=== PATIENT | female | born 1950 | race Caucasian/White ===

== ENCOUNTER → 2023-05-01 11:08 | Outpatient (REF) | payer MEDICARE, OTHER, SELFPAY | LOC: HWEVLT 11:08 | PROVIDERS: ATTENDING PHYSICIAN Radiology Vascular & Interventional Radiology | DX: I83.893 Varicose veins of bilateral lower extremities with other complications (principal) | CPT/HCPCS: 93970 ==

== ENCOUNTER 2023-05-14 14:00 | Outpatient (RCR) | payer MEDICARE, OTHER, SELFPAY | END 2023-05-14 23:59 | disposition home or self-care (01) | LOC: RPT 14:00 | PROVIDERS: ATTENDING PHYSICIAN Internal Medicine Cardiovascular Disease; FAMILY PHYSICIAN Internal Medicine Geriatric Medicine | DX: I89.0 Lymphedema, not elsewhere classified (principal); Z73.6 Limitation of activities due to disability | CPT/HCPCS: 97162; 97535; 97760; 97763 ==

== ENCOUNTER → 2023-05-15 09:11 | Outpatient (REF) | payer MEDICARE, OTHER, SELFPAY ==
[2023-05-19 13:21] LABS: Albumin 4.34 g/dL (3.75-5.01); Alpha 2 Globulin 0.73 g/dL (0.48-1.05); SPEP IFE Reflex IFE Done; Total Protein-Electrophoresis 6.6 g/dL (6.3-8.2)
[2023-05-20 07:25] LABS: IgA 105 mg/dL (68-408); IgG 426 mg/dL (768-1632); IgM 45 mg/dL (35-263)
== END ==
LOC: REG 09:11
PROVIDERS: ATTENDING PHYSICIAN Internal Medicine Geriatric Medicine
DX: G35 Multiple sclerosis (principal); Z85.038 Personal history of other malignant neoplasm of large intestine; R06.02 Shortness of breath; I10 Essential (primary) hypertension; I89.0 Lymphedema, not elsewhere classified; I36.1 Nonrheumatic tricuspid (valve) insufficiency; M17.11 Unilateral primary osteoarthritis, right knee; M79.89 Other specified soft tissue disorders; I87.2 Venous insufficiency (chronic) (peripheral); G56.03 Carpal tunnel syndrome, bilateral upper limbs
CPT/HCPCS: 36415; 82784; 84155; 84165; 86334

== ENCOUNTER 2023-06-17 14:22 | Outpatient (RCR) | payer MEDICARE, OTHER, SELFPAY | END 2023-06-19 11:03 | disposition home or self-care (01) | LOC: RPT 14:22 | PROVIDERS: ATTENDING PHYSICIAN Internal Medicine Cardiovascular Disease; FAMILY PHYSICIAN Internal Medicine Geriatric Medicine | DX: I89.0 Lymphedema, not elsewhere classified (principal); Z73.6 Limitation of activities due to disability; R26.2 Difficulty in walking, not elsewhere classified | CPT/HCPCS: 97535 ==

== ENCOUNTER → 2023-06-19 07:57 | Outpatient (REF) | payer MEDICARE, OTHER, SELFPAY ==
[2023-06-19 08:24] LABS: % Basophils 0.9 % (0-2); % Eosinophils 2.6 % (0-6); % Immature Granulocytes 0.3 % (0-0.5); % Lymphocytes 27.7 % (20.5-51.1); % Monocytes 10.7 % (1.7-9.3); % Neutrophils 57.8 % (42.2-75.2); Absolute Basophils 0.1 10^3/uL (0-0.2); Absolute Eosinophils 0.2 10^3/uL (0-0.7); Absolute Lymphocytes 1.6 10^3/uL (1.2-3.4); Absolute Monocytes 0.6 10^3/uL (0.1-0.6); Absolute Neutrophils 3.4 10^3/uL (1.4-6.5); Hematocrit 40.9 % (37.0-47.0); Hemoglobin 13.6 g/dL (12.0-16.0); Mean Corp Hgb Conc. 33.3 g/dL (33.0-37.0); Mean Corpuscular Hgb 30.1 pg (27.0-31.0); Mean Corpuscular Volume 90.5 fL (81.0-99.0); Mean Platelet Volume 10.4 fL (7.4-10.4); Nucleated Red Blood Cells % 0 %; Platelet Count 251 10^3/uL (130-400); Red Blood Cell Count 4.52 10^6/uL (4.20-5.40); Red Cell Dist. Width 12.8 % (11.5-14.5); White Blood Cell Count 5.8 10^3/uL (4.8-10.8)
[2023-06-19 09:11] LABS: ALT (SGPT) 25 U/L (0-35); AST (SGOT) 29 U/L (14-36); Alkaline Phosphatase 79 U/L (38-126); Blood Urea Nitrogen 27 mg/dl (7-17); Calcium 9.5 mg/dl (8.4-10.2); Carbon Dioxide 25 mmol/L (22-30); Chloride 105 mmol/L (98-107); Glucose 103 mg/dl (70-99); Potassium 4.1 mmol/L (3.5-5.1); Sodium 136 mmol/L (135-145); Total Bilirubin 0.6 mg/dl (0.2-1.3); Total Protein 6.2 g/dl (6.3-8.2); eGFR > 60.00
== END ==
LOC: REG 07:57
PROVIDERS: ATTENDING PHYSICIAN Specialist; FAMILY PHYSICIAN Internal Medicine Geriatric Medicine
DX: G35 Multiple sclerosis (principal)
CPT/HCPCS: 36415; 80053; 85025

== ENCOUNTER → 2023-07-20 08:01 | Outpatient (REF) | payer MEDICARE, OTHER, SELFPAY | LOC: MRI 3T 08:01 | PROVIDERS: ATTENDING PHYSICIAN Specialist; FAMILY PHYSICIAN Internal Medicine Geriatric Medicine | DX: G35 Multiple sclerosis (principal) | CPT/HCPCS: 70551; 72141 ==

== ENCOUNTER → 2023-07-24 14:51 | Outpatient (REF) | payer MEDICARE, OTHER, SELFPAY | LOC: MRI 3T 14:51 | PROVIDERS: ATTENDING PHYSICIAN Specialist; FAMILY PHYSICIAN Internal Medicine Geriatric Medicine | DX: G35 Multiple sclerosis (principal) | CPT/HCPCS: 72157; A9575 ==

== ENCOUNTER → 2023-08-27 10:48 | Outpatient (REF) | payer MEDICARE, OTHER, SELFPAY ==
[2023-08-27 12:34] LABS: Hepatitis B Surface Antigen Negative (Negative)
[2023-08-27 12:51] LABS: Hepatitis C Antibody Negative (Negative)
[2023-08-27 12:58] LABS: HIV Combo Negative (Negative)
== END ==
LOC: REG 10:48
PROVIDERS: ATTENDING PHYSICIAN Obstetrics & Gynecology Gynecology; FAMILY PHYSICIAN Internal Medicine Geriatric Medicine
DX: Z20.2 Contact with and (suspected) exposure to infections with a predominantly sexual mode of transmission (principal)
CPT/HCPCS: 36415; 86780; 86803; 87340; 87389

== ENCOUNTER → 2023-09-04 07:55 | Outpatient (REF) | payer MEDICARE, OTHER, SELFPAY | LOC: HWEVLT 07:55 | PROVIDERS: ATTENDING PHYSICIAN Radiology Vascular & Interventional Radiology | DX: I83.892 Varicose veins of left lower extremity with other complications (principal) | CPT/HCPCS: 36478 ==

== ENCOUNTER → 2023-09-25 07:58 | Outpatient (REF) | payer MEDICARE, OTHER, SELFPAY | LOC: HWEVLT 07:58 | PROVIDERS: ATTENDING PHYSICIAN Radiology Diagnostic Radiology | DX: I83.893 Varicose veins of bilateral lower extremities with other complications (principal) | CPT/HCPCS: 36478; 93971; C1769 ==

== ENCOUNTER → 2023-10-09 14:42 | Outpatient (REF) | payer MEDICARE, OTHER, SELFPAY | LOC: HWEVLT 14:42 | PROVIDERS: ATTENDING PHYSICIAN Radiology Vascular & Interventional Radiology | DX: I83.891 Varicose veins of right lower extremity with other complications (principal) | CPT/HCPCS: 93971 ==

== ENCOUNTER → 2023-10-10 13:45 | Outpatient (REF) | payer MEDICARE, OTHER, SELFPAY | LOC: REG 13:45 | PROVIDERS: ATTENDING PHYSICIAN Nurse Practitioner Family; FAMILY PHYSICIAN Internal Medicine Geriatric Medicine | DX: S40.862A Insect bite (nonvenomous) of left upper arm, initial encounter (principal); W57.XXXA Bitten or stung by nonvenomous insect and other nonvenomous arthropods, initial encounter | CPT/HCPCS: 36415; 86618 ==

== ENCOUNTER → 2023-12-14 07:33 | Outpatient (REF) | payer MEDICARE, OTHER, SELFPAY ==
[2023-12-14 08:34] LABS: % Basophils 0.8 % (0-2); % Eosinophils 2.4 % (0-6); % Immature Granulocytes 0.2 % (0-0.5); % Lymphocytes 26.5 % (20.5-51.1); % Monocytes 10.6 % (1.7-9.3); % Neutrophils 59.5 % (42.2-75.2); Absolute Eosinophils 0.1 10^3/uL (0-0.7); Absolute Lymphocytes 1.4 10^3/uL (1.2-3.4); Absolute Monocytes 0.5 10^3/uL (0.1-0.6); Hematocrit 41.1 % (37.0-47.0); Hemoglobin 13.8 g/dL (12.0-16.0); Mean Corp Hgb Conc. 33.6 g/dL (33.0-37.0); Mean Corpuscular Hgb 30.1 pg (27.0-31.0); Mean Corpuscular Volume 89.7 fL (81.0-99.0); Mean Platelet Volume 10.4 fL (7.4-10.4); Nucleated Red Blood Cells % 0 %; Platelet Count 268 10^3/uL (130-400); Red Blood Cell Count 4.58 10^6/uL (4.20-5.40); Urine Albumin Negative (Neg - Trace); Urine Bilirubin Negative (Negative); Urine Character Clear (Clear); Urine Color Yellow; Urine Glucose Negative (Negative); Urine Ketone Negative (Negative); Urine Leukocyte Negative (Negative); Urine Nitrite Negative (Negative); Urine Occult Blood Negative (Negative); Urine Urobilinogen Negative (Neg - 1+); White Blood Cell Count 5.1 10^3/uL (4.8-10.8)
[2023-12-14 09:13] LABS: ALT (SGPT) 32 U/L (0-35); AST (SGOT) 31 U/L (14-36); HDL Cholesterol 59 mg/dl; LDL Cholesterol, Calculated 163 mg/dl; Total Cholesterol 243 mg/dl (50-199); Triglyceride 106 mg/dl (10-149); Very Low Density Lipoprotein 21 mg/dl (0-30)
[2023-12-14 09:30] LABS: Vitamin D, 25-OH*** 43.9 ng/mL (30-80)
== END ==
LOC: REG 07:33
PROVIDERS: ATTENDING PHYSICIAN Internal Medicine Cardiovascular Disease; REFERRING PHYSICIAN Internal Medicine Geriatric Medicine
DX: G35 Multiple sclerosis (principal); R06.02 Shortness of breath; I10 Essential (primary) hypertension; I89.0 Lymphedema, not elsewhere classified; I36.1 Nonrheumatic tricuspid (valve) insufficiency; M17.11 Unilateral primary osteoarthritis, right knee; M79.89 Other specified soft tissue disorders; I87.2 Venous insufficiency (chronic) (peripheral); G56.03 Carpal tunnel syndrome, bilateral upper limbs; Z13.89 Encounter for screening for other disorder; M72.2 Plantar fascial fibromatosis; R61 Generalized hyperhidrosis; Z01.89 Encounter for other specified special examinations
CPT/HCPCS: 36415; 80061; 81003; 82306; 84450; 84460; 85025

== ENCOUNTER → 2024-01-15 07:02 | Outpatient (REF) | payer MEDICARE, OTHER, SELFPAY | LOC: WDC 07:02 | PROVIDERS: ATTENDING PHYSICIAN Obstetrics & Gynecology Gynecology; FAMILY PHYSICIAN Internal Medicine Geriatric Medicine | DX: Z12.31 Encounter for screening mammogram for malignant neoplasm of breast (principal) | CPT/HCPCS: 77063; 77067 ==

== ENCOUNTER → 2024-02-14 12:33 | Outpatient (REF) | payer MEDICARE, OTHER, SELFPAY | LOC: EMG 12:33 | PROVIDERS: ATTENDING PHYSICIAN Orthopaedic Surgery Hand Surgery; FAMILY PHYSICIAN Internal Medicine Geriatric Medicine | DX: G56.03 Carpal tunnel syndrome, bilateral upper limbs (principal) | CPT/HCPCS: 95886; 95911 ==

== ENCOUNTER → 2024-03-16 11:59 | Outpatient (REF) | payer MEDICARE, OTHER, SELFPAY ==
[2024-03-16 12:36] LABS: % Basophils 0.6 % (0-2); % Eosinophils 1.5 % (0-6); % Immature Granulocytes 0.4 % (0-0.5); % Lymphocytes 33.5 % (20.5-51.1); % Monocytes 10.8 % (1.7-9.3); % Neutrophils 53.2 % (42.2-75.2); Absolute Eosinophils 0.1 10^3/uL (0-0.7); Absolute Lymphocytes 1.8 10^3/uL (1.2-3.4); Absolute Monocytes 0.6 10^3/uL (0.1-0.6); Absolute Neutrophils 2.9 10^3/uL (1.4-6.5); Hematocrit 44.1 % (37.0-47.0); Hemoglobin 14.6 g/dL (12.0-16.0); Mean Corp Hgb Conc. 33.1 g/dL (33.0-37.0); Mean Corpuscular Hgb 29.7 pg (27.0-31.0); Mean Corpuscular Volume 89.6 fL (81.0-99.0); Mean Platelet Volume 11.7 fL (7.4-10.4); Nucleated Red Blood Cells % 0 %; Platelet Count 232 10^3/uL (130-400); Red Blood Cell Count 4.92 10^6/uL (4.20-5.40); Red Cell Dist. Width 13.6 % (11.5-14.5); Urine Albumin Negative (Neg - Trace); Urine Bilirubin Negative (Negative); Urine Character Clear (Clear); Urine Color Yellow; Urine Glucose Negative (Negative); Urine Ketone Negative (Negative); Urine Leukocyte Negative (Negative); Urine Nitrite Negative (Negative); Urine Occult Blood Negative (Negative); Urine Specific Gravity 1.015 (<1.030); Urine Urobilinogen Negative (Neg - 1+); White Blood Cell Count 5.4 10^3/uL (4.8-10.8)
[2024-03-16 12:50] LABS: Blood Urea Nitrogen 14 mg/dl (7-17); Calcium 9.8 mg/dl (8.4-10.2); Carbon Dioxide 30 mmol/L (22-30); Chloride 99 mmol/L (98-107); Glucose 91 mg/dl (70-99); Sodium 138 mmol/L (135-145); eGFR > 60.00
== END ==
LOC: REG 11:59
PROVIDERS: ATTENDING PHYSICIAN Family Medicine; FAMILY PHYSICIAN Internal Medicine Geriatric Medicine
DX: Z01.818 Encounter for other preprocedural examination (principal)
CPT/HCPCS: 36415; 80048; 81003; 85025; 93005

== ENCOUNTER → 2024-05-05 07:44 | Outpatient (REF) | payer MEDICARE, OTHER, SELFPAY ==
[2024-05-05 09:23] LABS: ALT (SGPT) 25 U/L (0-35); AST (SGOT) 28 U/L (14-36); Albumin 4.4 g/dl (3.5-5.0); Alkaline Phosphatase 84 U/L (38-126); Blood Urea Nitrogen 10 mg/dl (7-17); Calcium 9.8 mg/dl (8.4-10.2); Carbon Dioxide 26 mmol/L (22-30); Chloride 103 mmol/L (98-107); Glucose 75 mg/dl (70-99); HDL Cholesterol 55 mg/dl; LDL Cholesterol, Calculated 90 mg/dl; Potassium 4.2 mmol/L (3.5-5.1); Sodium 139 mmol/L (135-145); Total Bilirubin 0.7 mg/dl (0.2-1.3); Total Cholesterol 163 mg/dl (50-199); Total Protein 6.3 g/dl (6.3-8.2); Triglyceride 93 mg/dl (10-149); Very Low Density Lipoprotein 18 mg/dl (0-30); eGFR > 60.00
== END ==
LOC: REG 07:44
PROVIDERS: ATTENDING PHYSICIAN Internal Medicine Geriatric Medicine
DX: G35 Multiple sclerosis (principal); R06.02 Shortness of breath; I10 Essential (primary) hypertension; I89.0 Lymphedema, not elsewhere classified; E78.2 Mixed hyperlipidemia; I36.1 Nonrheumatic tricuspid (valve) insufficiency; M17.11 Unilateral primary osteoarthritis, right knee; M79.89 Other specified soft tissue disorders; I87.2 Venous insufficiency (chronic) (peripheral); G56.03 Carpal tunnel syndrome, bilateral upper limbs; Z13.89 Encounter for screening for other disorder; M72.2 Plantar fascial fibromatosis
CPT/HCPCS: 36415; 80053; 80061

== ENCOUNTER → 2024-06-04 12:59 | Outpatient (REF) | payer MEDICARE, OTHER, SELFPAY | LOC: RAD 12:59 | PROVIDERS: ATTENDING PHYSICIAN Internal Medicine Geriatric Medicine | DX: R22.42 Localized swelling, mass and lump, left lower limb (principal); R22.41 Localized swelling, mass and lump, right lower limb | CPT/HCPCS: 76882 ==

== ENCOUNTER → 2024-09-19 08:07 | Outpatient (REF) | payer MEDICARE, OTHER, SELFPAY ==
[2024-09-19 11:14] LABS: Hematocrit 42.8 % (37.0-47.0); Hemoglobin 13.9 g/dL (12.0-16.0); Mean Corp Hgb Conc. 32.5 g/dL (33.0-37.0); Mean Corpuscular Volume 94.1 fL (81.0-99.0); Nucleated Red Blood Cells % 0 %; Platelet Count 237 10^3/uL (130-400); Red Cell Dist. Width 12.7 % (11.5-14.5)
[2024-09-19 12:32] LABS: ALT (SGPT) 31 U/L (0-35); AST (SGOT) 28 U/L (14-36); Albumin 4.4 g/dl (3.5-5.0); Alkaline Phosphatase 80 U/L (38-126); Blood Urea Nitrogen 21 mg/dl (7-17); Calcium 9.6 mg/dl (8.4-10.2); Carbon Dioxide 29 mmol/L (22-30); Chloride 106 mmol/L (98-107); Glucose 82 mg/dl (70-99); Potassium 4.6 mmol/L (3.5-5.1); Sodium 142 mmol/L (135-145); Total Protein 6.5 g/dl (6.3-8.2); eGFR > 60.00
== END ==
LOC: REG 08:07
PROVIDERS: ATTENDING PHYSICIAN Specialist; FAMILY PHYSICIAN Internal Medicine Geriatric Medicine
DX: G35 Multiple sclerosis (principal)
CPT/HCPCS: 36415; 80053; 85025

== ENCOUNTER → 2024-11-30 06:33 | Outpatient (REF) | payer MEDICARE, OTHER, SELFPAY | LOC: MRI 3T 06:33 | PROVIDERS: ATTENDING PHYSICIAN Specialist; FAMILY PHYSICIAN Internal Medicine Geriatric Medicine | DX: G35.D Multiple sclerosis, unspecified (principal) | CPT/HCPCS: 70551; 72146 ==

== ENCOUNTER → 2025-01-16 08:34 | Outpatient (REF) | payer MEDICARE, OTHER, SELFPAY | LOC: WDC 08:34 | PROVIDERS: ATTENDING PHYSICIAN Internal Medicine Geriatric Medicine | DX: Z12.31 Encounter for screening mammogram for malignant neoplasm of breast (principal) | CPT/HCPCS: 77063; 77067 ==

== ENCOUNTER 2025-02-02 11:02 | Emergency (ER) | payer MEDICARE, OTHER, SELFPAY ==
[2025-02-02 11:06] VITALS: BP 138/66; BMI 29.2
--- NOTE | 2025-02-02 11:20 | ED.GENMED ---
History of Present Illness
General
Chief Complaint: Fainting/Passed Out
Source: patient
Exam Limitations: none
Time Seen by Provider: 02/02/25 11:18
History of Present Illness
History of Present Illness:
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 She was standing talking to a staff member and passed out. She remembers waking up on the floor. She struck the back of her head. She also complains of left hip pain.
There is no preceding chest pain or shortness of breath. She does feel she has lightheadedness. She has a history of MS. She notes numbness to both lips that she does not typically have. She denies any unilateral numbness or weakness otherwise.
No fevers. She had breakfast this morning. No other complaints
Past History
Past History
ED Past Medical History: Other
ED Past Surgical History: Bowel resection and Orthopedic
Social History
Tobacco: Former smoker
Alcohol: Occasional
Personal: Single
Living: with family
Family History
Family History: Unable to obtain
Phy Exam
Physical Exam
Physical Exam:
General: Well-appearing female no acute respiratory distress
HEENT: Normal cephalic atraumatic small hematoma noted posterior scalp pupils equal round reactive to light face symmetric
Heart: Regular rate and rhythm
Lungs: Clear no wheeze
Musculoskeletal exam: The spine is mildly tender about the paraspinous area cervical spine. Left hip is tender anteriorly.
Neurologic exam: Normal gait alert and oriented x 3 no unilateral deficit finger-nose [id number] intact no drift no facial asymmetry
Course
Orders/Labs/Results
Orders:
Orders
02/02/25
CT Cervical Spine W/o Iv Contr Urgent
Reason For Exam: fall
02/02/25 11:12
CMP [Comprehensive Metabolic Panel] Urgent
Complete Blood Count/With Diff Urgent
02/02/25 11:19
Electrocardiogram (*1) Urgent
Reason for Study: Syncope
CT Head W/o Iv Contrast Urgent
Comment:
Reason For Exam: fall
EKG- Treatment ONCE
02/02/25 11:22
CR Hip - LT w/wo Pel 2-3 Vw* Urgent
Comment:
Reason For Exam: fall
Include a pelvis x-ray?: Yes
Abnormal Lab Results
02/02/25
11:12
Carbon Dioxide 31 H mmol/L
(22-30)
BUN 28 H mg/dl
(7-17)
Glucose 133 H mg/dl
(70-99)
Total Protein 6.2 L g/dl
(6.3-8.2)
02/02/25 11:12
02/02/25 11:12
Vital Signs
Initial and Last Documented VS:
Initial Vital Signs
Temp Pulse Resp BP Pulse Ox
98.4 F 74 22 138/66 95
02/02/25 11:06 02/02/25 11:06 02/02/25 11:06 02/02/25 11:06 02/02/25 11:06
Last Documented Vital Signs
Temp Pulse Resp BP Pulse Ox
98.4 F 70 17 158/82 97
02/02/25 11:06 02/02/25 15:14 02/02/25 13:30 02/02/25 15:14 02/02/25 13:30
MDM/Problems Addressed
Differential Diagnosis Includes:
Syncopal episode with fall. Question orthostatic hypotension versus arrhythmia versus vasovagal episode or anemia. Will check labs EKG and placed on monitoring tech. She did have a head strike. CT of the head and cervical spine ordered. X-ray
left hip ordered
*Pulse Oximetry
SaO2: 95
Oxygen Mode of Delivery: Room air
Patient hypoxic: no
*Critical Care Note
Total Time (30-74mins, 75-104mins- exclusive of procedures): Not Applicable
Update Note
Update Note:
Workup here essentially unremarkable. CTs negative x-ray left hip negative no arrhythmias noted on monitor. No evidence of electrolyte abnormality or anemia. Stable for discharge with follow-up with family doctor
ED Attending Note
-
Portions of this chart may have been created with voice recognition software.� Occasional wrong word or��sound alike� substitutions may have occurred due to the inherent limitations of voice recognition software.
Discharge Plan
Departure
Patient Disposition: Home (Routine Discharge)
Date of Disposition: 02/02/25
Time of Disposition: 15:29
Patient with high blood pressure during this ER visit?: No
Discharge Problem:
Fall
Instructions: Syncope (Fainting) (DC)
Prescriptions:
No Action
multivitamin [Multi-Day] 1 EACH tablet
1 ea PO DAILY
glatiramer [Copaxone] 40 MG/ML syringe
40 mg SQ MOWEFR
omega 2-gfj-mhu-fish oil [Fish Oil] 1 EACH capsule
1 ea PO DAILY
prednisone 50 MG tablet
50 mg PO DAILY Qty: 2 0RF
epinephrine [EpiPen] 0.3 MG/0.3/SYRINGE auto-injector
0.3 mg IM .STAT PRN (Reason: throat swelling/sob) Qty: 1 0RF
albuterol sulfate [Proventil HFA] 90 MCG/PUFF HFA aerosol inhaler
2 puff inhalation Q4HPRN PRN (Reason: shortness of breath) Qty: 1 0RF
Referrals:
NONE,* [Family Provider, Internal Medicine]
Activity Restrictions/Additional Instructions:
Please return here for worsening symptoms. Stay hydrated. Follow-up with your doctor otherwise
Interventions
Interventions:
*Risk Screen - Suicide Last Done: 02/02/25 11:06
*General Assessment Last Done: 02/02/25 11:06
*Neglect/Abuse Screening Last Done: 02/02/25 11:06
*ED COVID-19 Vaccine History Last Done: 02/02/25 11:06
*ED Influenza Vaccine History Last Done: 02/02/25 11:06
[facility] Fall Risk Assessment Tool Last Done: 02/02/25 11:02
ED- Cardiac Assessment Last Done: 02/02/25 11:10
ED- Neurological Assessment Last Done: 02/02/25 11:10
Discharge Date and Time
Print Language: ROMANSH
[2025-02-02 11:23] LABS: Hematocrit 39.3 % (37.0-47.0); Hemoglobin 13.2 g/dL (12.0-16.0); Mean Corp Hgb Conc. 33.6 g/dL (33.0-37.0); Mean Corpuscular Volume 91.2 fL (81.0-99.0); Nucleated Red Blood Cells % 0 %; Platelet Count 244 10^3/uL (130-400); Red Cell Dist. Width 12.8 % (11.5-14.5)
[2025-02-02 11:46] LABS: ALT (SGPT) 31 U/L (0-35); AST (SGOT) 34 U/L (14-36); Albumin 4.1 g/dl (3.5-5.0); Alkaline Phosphatase 59 U/L (38-126); Blood Urea Nitrogen 28 mg/dl (7-17); Calcium 9.2 mg/dl (8.4-10.2); Carbon Dioxide 31 mmol/L (22-30); Chloride 103 mmol/L (98-107); Estimated Creatinine Clearance 70 ml/min; Glucose 133 mg/dl (70-99); Potassium 4.3 mmol/L (3.5-5.1); Sodium 137 mmol/L (135-145); Total Protein 6.2 g/dl (6.3-8.2); eGFR > 60.00
[2025-02-02 12:53] VITALS: BP 156/72
[2025-02-02 15:13] VITALS: BP 158/82
[2025-02-02 15:14] VITALS: BP 158/82
== END 2025-02-02 15:39 | disposition home or self-care (01) ==
LOC: EMR 11:02
PROVIDERS: Physician Assistant; EMERGENCY PHYSICIAN Emergency Medicine
DX: R55 Syncope and collapse (principal); S00.03XA Contusion of scalp, initial encounter; M25.552 Pain in left hip; W18.39XA Other fall on same level, initial encounter; Y93.89 Activity, other specified; Y92.238 Other place in hospital as the place of occurrence of the external cause; Y99.2 Volunteer activity; G35.D Multiple sclerosis, unspecified; Z87.891 Personal history of nicotine dependence
CPT/HCPCS: 99284; 70450; 72125; 73502; 80053; 85025; 93005

== ENCOUNTER → 2025-02-08 07:29 | Outpatient (REF) | payer MEDICARE, OTHER, SELFPAY ==
[2025-02-08 09:39] LABS: Iron 121 ug/dl (37-170)
[2025-02-08 09:51] LABS: Total Iron Binding Capacity 357 ug/dl (265-497)
[2025-02-08 09:58] LABS: Vitamin D, 25-OH*** 60.2 ng/mL (30-80)
[2025-02-08 10:16] LABS: Ferritin 99.5 ng/ml (11.1-264.0)
[2025-02-08 10:47] LABS: Folate > 20.0 ng/ml (2.76-20); Vitamin B12 676 pg/ml (239-931)
== END ==
LOC: REG 07:29
PROVIDERS: ATTENDING PHYSICIAN Nurse Practitioner Primary Care
DX: R20.2 Paresthesia of skin (principal); E55.9 Vitamin D deficiency, unspecified; Z12.5 Encounter for screening for malignant neoplasm of prostate
CPT/HCPCS: 36415; 82306; 82607; 82728; 82746; 83540; 83550; 84443

== ENCOUNTER → 2025-02-20 07:17 | Outpatient (REF) | payer MEDICARE, OTHER, SELFPAY | LOC: RCS 07:17 | PROVIDERS: ATTENDING PHYSICIAN Internal Medicine Geriatric Medicine; FAMILY PHYSICIAN Nurse Practitioner Primary Care | DX: R55 Syncope and collapse (principal) | CPT/HCPCS: 93225; 93226; 93306 ==